=== PATIENT | female | born 1985 | race Caucasian/White ===

== ENCOUNTER 2020-10-22 10:05 | Outpatient (CLI) | payer OTHER, SELFPAY ==
[2020-10-22 10:29] LABS: Hematocrit 43.7 % (37.0-47.0); Mean Corpuscular HGB Conc 34.3 g/dl (32-36); Mean Corpuscular Hemoglobin 33.3 pg (26-34); Mean Corpuscular Volume 97.1 fl (80-100); Mean Platelet Volume 10.6 fl (7.4-10.4); Platelet Count Result 252 k/mm3 (150-375); White Blood Count 6.9 K/mm3 (4.5-10.0)
[2020-10-22 10:44] LABS: Alanine Aminotransferase 14 U/L (4-35); Albumin Level 4.5 g/dL (3.5-5.1); Alkaline Phosphatase 64 U/L (38-126); Anion Gap 4 mmol/L (8-16); Aspartate Amino Transferase 24 U/L (14-36); Bilirubin,Total 0.6 mg/dL (0.2-1.3); Blood Urea Nitrogen 9 mg/dL (7-17); Calcium 9.2 mg/dL (8.4-10.2); Carbon Dioxide 30 mmol/L (22-30); Chloride 105 mmol/L (98-107); Estimated Glomerular Filt Rate > 60; Glucose 88 mg/dL (65-105); Potassium 4.1 mmol/L (3.4-5.0); Sodium 139 mmol/L (137-145)
[2020-10-22 11:24] LABS: HIV 1/2 Ab P24 Ag Result Negative (Negative)
[2020-10-22 11:26] LABS: Vitamin D 25 Hydroxy 64.4 ng/mL
[2020-10-22 11:39] LABS: Thyroid Stimulating Hormone Reflex 0.949 uIU/mL (0.465-4.68)
[2020-10-22 11:40] LABS: Hepatitis B Surface Antigen Negative (Negative)
[2020-10-22 11:46] LABS: HAV RESULT Negative (Negative); Hepatitis B Core IgM Result Negative (Negative)
[2020-10-22 11:58] LABS: Hepatitis C Virus Antibody Negative (Negative)
[2020-10-25 11:04] LABS: Rapid Plasma Reagin Non-Reactive (NonReactive)
== END 2020-10-22 10:06 | disposition home or self-care (01) ==
LOC: ANHLAB 10:08
PROVIDERS: Visit Provider Obstetrics & Gynecology
DX: Z11.3 Encounter for screening for infections with a predominantly sexual mode of transmission (principal); R53.83 Other fatigue
CPT/HCPCS: 36415; 80053; 80074; 82306; 84443; 85027; 86592; 86695; 86696; 86703; G0432